=== PATIENT | female | born 1945 | race Caucasian/White ===

== ENCOUNTER → 2016-11-12 | Outpatient (CLI) | payer MEDICARE, OTHER ==
[~2016-11-12] VITALS: Ht 160 cm; Wt 111.6 kg
[~2016-11-12] MED LIST: ASPIRIN EC325 MG PO; ASPIRIN EC81 MG PO; ATROVENT INH S2.5 ML INH; CARDIZEM CD180 MG PO; COQ-10100 MG PO; HYDRALAZINE HC100 MG PO; LANTUS100 UNIT/1 SQ; LIPITOR TAB 1010 MG PO; NEURONTIN 300300 MG PO; NITROSTAT 0.40.4 MG SL; NORVASC10 MG PO; NOVOLOG 10100 UNITS/ INJ; PRILOSEC20 MG PO; SINGULAIR10 MG PO; SYMBICORT 160-1 INHA INH; SYNTHROID100 MCG PO; VENTOLIN/PROVE0.5 ML INH; VITAMIN B-1000 MCG/M SC; VITAMIN D50000 UNIT PO; ZYLOPRIM 100 M100 MG PO
== END ==
LOC: OPSV 09:41
DX: N18.5 Chronic kidney disease, stage 5 (principal); D63.1 Anemia in chronic kidney disease
CPT/HCPCS: 96372; J0885

== ENCOUNTER 2016-11-14 19:49 | Emergency (ER) | payer MEDICARE, OTHER ==
[2016-11-14 21:54] LABS: HEMOGLOBIN 8.1 gm/dl (12.3-15.3); RED BLOOD COUNT 3.48 M/UL (4.00-5.10); WHITE BLOOD COUNT 13.9 K/UL (4.5-11.0)
== END 2016-11-15 | disposition home or self-care (01) ==
LOC: ER1 19:49
PROVIDERS: Family Medicine
DX: M79.602 Pain in left arm (principal); R22.32 Localized swelling, mass and lump, left upper limb; E11.9 Type 2 diabetes mellitus without complications; F17.210 Nicotine dependence, cigarettes, uncomplicated; Z88.8 Allergy status to other drugs, medicaments and biological substances
CPT/HCPCS: 36415; 80053; 85025; 87040; 99283

== ENCOUNTER → 2016-11-25 | Outpatient (CLI) | payer MEDICARE, OTHER ==
[2016-11-25 11:52] LABS: HEMOGLOBIN 7.8 gm/dl (12.3-15.3); RED BLOOD COUNT 3.35 M/UL (4.00-5.10); WHITE BLOOD COUNT 12.6 K/UL (4.5-11.0)
== END ==
LOC: OPSV 10:51
PROVIDERS: Internal Medicine Nephrology
DX: N18.5 Chronic kidney disease, stage 5 (principal); D63.1 Anemia in chronic kidney disease
CPT/HCPCS: 36415; 80048; 82728; 83540; 83550; 85027; 96365; 96366; J1756; J7050

== ENCOUNTER → 2016-12-02 | Outpatient (CLI) | payer MEDICARE, OTHER ==
[~2016-12-02] VITALS: Ht 160 cm; Wt 111.6 kg
== END ==
LOC: OPSV 10:35
DX: D50.9 Iron deficiency anemia, unspecified (principal)
CPT/HCPCS: 96365; 96366; J1756; J7050

== ENCOUNTER → 2016-12-09 | Outpatient (CLI) | payer MEDICARE, OTHER ==
[~2016-12-09] VITALS: Ht 160 cm; Wt 111.6 kg
[2016-12-09 11:20] LABS: HEMOGLOBIN 8.3 gm/dl (12.3-15.3); RED BLOOD COUNT 3.49 M/UL (4.00-5.10); WHITE BLOOD COUNT 10.1 K/UL (4.5-11.0)
== END ==
LOC: OPSV 10:49
PROVIDERS: Internal Medicine Nephrology
DX: N18.5 Chronic kidney disease, stage 5 (principal); D63.1 Anemia in chronic kidney disease
CPT/HCPCS: 36415; 85027; 96372; J0885; J1756; J7050

== ENCOUNTER → 2016-12-23 | Outpatient (CLI) | payer MEDICARE ==
[~2016-12-23] VITALS: Ht 160 cm; Wt 111.1 kg
[2016-12-23 11:25] LABS: RED BLOOD COUNT 3.84 M/UL (4.00-5.10); WHITE BLOOD COUNT 7.2 K/UL (4.5-11.0)
== END ==
LOC: OPSV 10:48
PROVIDERS: Internal Medicine Nephrology
DX: N18.5 Chronic kidney disease, stage 5 (principal); D63.1 Anemia in chronic kidney disease
CPT/HCPCS: 36415; 80048; 82728; 83540; 83550; 85027; 96372; J0885